=== PATIENT | female | born 1975 | race Hispanic/Latino ===

== ENCOUNTER → 2019-11-12 | Outpatient (CLI) | payer BC | END | disposition home or self-care (01) | LOC: RAH 11:05 | PROVIDERS: ATTEND Urology | DX: N20.0 Calculus of kidney (principal) ==

== ENCOUNTER → 2022-07-26 | Outpatient (CLI) | payer BC | END | disposition home or self-care (01) | LOC: RAH 09:18 | PROVIDERS: ATTEND Family Medicine | DX: M54.9 Dorsalgia, unspecified (principal); M25.552 Pain in left hip | CPT/HCPCS: 72100; 73502 ==

== ENCOUNTER → 2022-10-11 | Outpatient (CLI) | payer BC | END | disposition home or self-care (01) | LOC: RAH 08:29 | PROVIDERS: ATTEND Family Medicine | DX: R79.89 Other specified abnormal findings of blood chemistry (principal) | CPT/HCPCS: 76700 ==

== ENCOUNTER 2023-07-19 06:27 | Day surgery (SDC) | payer BC ==
[2023-07-14 09:44] VITALS: BP 134/64; PULSE 55; RESP 16
[2023-07-14 09:59] LABS: BASOPHILS # (AUTO) 0.03 K/uL (0.00-0.20); BASOPHILS % (AUTO) 0.5 % (0.0-5.0); EOSINOPHILS # (AUTO) 0.13 K/uL (0.00-0.70); EOSINOPHILS % (AUTO) 2.3 % (0.0-8.0); HEMATOCRIT 41.7 % (36-48); IMMATURE GRANULOCYTE ABSOLUTE 0.02 K/uL (0-1); LYMPHOCYTES # (AUTO) 1.6 K/uL (1.0-4.8); LYMPHOCYTES % (AUTO) 27.1 % (21.0-51.0); MEAN CORPUSCULAR HEMOGLOBIN 31.7 pg (27.0-33.0); MEAN CORPUSCULAR HGB CONC 34.8 g/dL (32.0-36.0); MONOCYTES # (AUTO) 0.5 K/uL (0.1-1.0); MONOCYTES % (AUTO) 8.4 % (3.0-13.0); NEUTROPHILS # (AUTO) 3.5 K/uL (1.8-7.7); NEUTROPHILS % (AUTO) 61.4 % (40.0-77.0); PLATELET COUNT (AUTO) 257 K/uL (130-400); RED BLOOD CELL COUNT(AUTO) 4.58 MIL/uL (4.00-5.50); RED CELL DISTRIBUTION WIDTH 12.3 % (11.0-15.5); WHITE BLOOD COUNT (AUTO) 5.7 K/uL (4.8-10.8)
[2023-07-14 10:02] LABS: ALBUMIN 3.7 g/dL (3.5-5.0); BILIRUBIN,TOTAL 1.5 mg/dL (0.2-1.0); CREATININE 0.6 mg/dL (0.5-1.5); POTASSIUM 4.2 mmol/L (3.5-5.1); TOTAL PROTEIN, SERUM 7.6 g/dL (6.0-8.3)
[2023-07-14 10:05] LABS: INR 0.95 (0.85-1.15); PROTHROMBIN TIME 11.2 SEC (9.6-11.6)
[2023-07-14 10:06] LABS: PARTIAL THROMBOPLASTIN TIME 32.7 SEC (26.3-35.5)
[2023-07-19] VITALS (17 sets, daily range): BP systolic 122–143; BP diastolic 55–78; PULSE 60–102; RESP 15–20
[~2023-07-19] VITALS: Ht 152.4 cm; Wt 58.2 kg
[~2023-07-19 06:27] MED LIST: ALPR0.255 PO; METO-408 PO; METR-172 PO; MULT-1367 PO; OMEP20TA20 PO
[2023-07-19] MEDS ORDERED: LIDOCAINE PF 100MG/5ML (2%) SYRINGE 5ML ONE (07:12)
[2023-07-19] MEDS ORDERED: ROCURONIUM BROMIDE 10MG/1ML 5ML VL ONE (07:14)
[2023-07-19] MEDS ORDERED: PROPOFOL 10 MG/ML 20ML VIAL IV ONE (07:14)
[2023-07-19] MEDS ORDERED: MIDAZOLAM HCL 1 MG/ML 2ML VIAL ONE (07:14)
[2023-07-19] MEDS ORDERED: FENTANYL CITRATE PF 50 MCG/1 ML 2ML VIAL ONE (07:15)
[2023-07-19] MEDS ORDERED: BUPIVACAINE/PF 0.25% 30ML VIAL IJ ONE (07:20)
[2023-07-19] MEDS: MEROPENEM 1 GM VIAL ONE (07:20)
[2023-07-19] MEDS: LACTATED RINGERS 1000ML 1,000 ML IV ONE (07:20)
[2023-07-19] MEDS ORDERED: LIDOCAINE 1%-EPI 1:100,000 20 ML VIAL ONE (07:21)
[2023-07-19] MEDS: MEROPENEM 1 GM VIAL IVPB ONE (07:35)
[2023-07-19] MEDS ORDERED: DEXAMETHASONE SOD PHOSPHATE 10MG/ML 1ML VIAL ONE (07:46)
[2023-07-19] MEDS ORDERED: ONDANSETRON 4MG INJ ONE (07:46)
[2023-07-19] MEDS ORDERED: KETOROLAC 30MG VIAL (30MG/ML) ONE (07:51)
[2023-07-19] MEDS ORDERED: LEVO5TAB13 PO (08:00)
[2023-07-19] MEDS ORDERED: GLYCOPYRROLATE 0.2 MG/ML 5 ML VIAL ONE (08:08)
[2023-07-19] MEDS ORDERED: NEOSTIGMINE METHYLSULFATE 1MG/ML IV ONE (08:08)
[2023-07-19] MEDS: BUPIVACAINE/PF 0.25% 30ML VIAL IJ ONE (08:12)
[2023-07-19] MEDS: LIDOCAINE 1%-EPI 1:100,000 20 ML VIAL IJ ONE (08:12)
[2023-07-19] MEDS ORDERED: EPHEDRINE SULFATE 50 MG/ML AMPULE ONE (08:24)
[2023-07-19] MEDS: ONDANSETRON 4MG INJ ONE (09:28)
== END 2023-07-19 10:20 | disposition home or self-care (01) ==
LOC: DAH 06:27
PROVIDERS: ATTEND Surgery
DX: K64.2 Third degree hemorrhoids (principal); I10 Essential (primary) hypertension; F41.9 Anxiety disorder, unspecified; K21.9 Gastro-esophageal reflux disease without esophagitis; Z79.01 Long term (current) use of anticoagulants; Z79.899 Other long term (current) drug therapy; Z90.710 Acquired absence of both cervix and uterus; Z90.49 Acquired absence of other specified parts of digestive tract
CPT/HCPCS: 80053; 85025; 85610; 85730; 36415; 93005; 45541; 46946; A6260; A4663; J7120 ×2; J3010; J3490 ×5; J1100; J0665 ×2; J2001; J2250; J2704; J2405 ×2; J1885; J2710; J2185 ×2; A4649 ×2; A4930; A4215; A4223; A4222; A4221